=== PATIENT | female | born 1970 | race Caucasian/White ===

== ENCOUNTER 2018-05-23 00:42 | Inpatient (IN) ==
--- NOTE | 2018-05-23 01:19 | Emergency Department Note ---
Disposition Clinical Impression: Volume excess Disposition: Admitted As Inpatient Condition: Fair General Adult HPI - General Chief complaint: ED Shortness of Breath/Dyspnea Stated complaint: nellie water retention left ankle injury Time Seen by Provider: 05/23/18 01:11 - History of Present Illness Pain Scale: 0 - Related Data Allergies Allergy/AdvReac Type Severity Reaction Status Date / Time aspirin Allergy Difficulty Verified 05/23/18 01:09 Breathing Course Vital Signs Temperature 99.2 F 05/23/18 01:06 Pulse Rate 109 05/23/18 01:06 Respiratory Rate 22 05/23/18 01:06 Blood Pressure 128/65 05/23/18 01:06 O2 Sat by Pulse Oximetry 88 05/23/18 01:06 Temperature 99.2 F 05/23/18 01:57 Pulse Rate 109 05/23/18 01:57 Respiratory Rate 22 05/23/18 01:57 Blood Pressure 128/65 05/23/18 01:57 O2 Sat by Pulse Oximetry 88 05/23/18 01:57 Oxygen Delivery Oxygen Delivery Room Air Medical Decision Making - Lab Data Result diagrams: 05/23/18 02:01 05/23/18 02:01 Lab Results 05/23/18 05/23/18 05/23/18 Range/Units 01:31 02:01 02:01 WBC 10.8 (4.3-11.1) K/mcL RBC 4.61 (3.82-4.97) M/mcL Hgb 12.4 (11.5-15.4) g/dL Hct 41.8 (35.3-44.9) % MCV 90.7 (83.0-100.0) fL MCH 26.9 L (28.0-33.3) pg MCHC 29.7 L (31.6-35.5) g/dL RDW 17.0 H (11.5-14.5) % Plt Count 230 (140-400) K/mcL MPV 10.3 (9.4-12.4) fL Immature Gran % 0.7 (0-4) % Seg Neutrophils % 70.7 % Lymphocytes % 21.3 % Monocytes % 4.3 % Eosinophils % 2.4 % Basophils % 0.6 % Neutrophils # 7.6 (1.6-8.9) K/mcL Lymphocytes # 2.3 (0.6-4.6) K/mcL Monocytes # 0.5 (0.0-1.3) K/mcL Eosinophils # 0.3 (0.0-0.6) K/mcL Basophils # 0.1 (0.0-0.2) K/mcL Nucleated RBCs/100 WBC 0.2 H (0) /100 WBC PT 14.7 H (9.4-12.1) Seconds INR 1.3 ABG pH 7.40 (7.32-7.45) pH Units ABG pCO2 58 H (35-45) mmHg ABG pO2 48 L* (85-104) mmHg ABG HCO3 36 H (21-27) mEq/L ABG Total CO2 37 H (20-26) mEq/L ABG O2 Saturation 82 L (95-98) % ABG Base Excess 8 H (-2 to 3) mEq/L O2 Delivery Device Room Air Sodium (136-145) mEq/L Potassium (3.5-5.1) mEq/L Chloride (98-107) mEq/L Carbon Dioxide (23-29) mEq/L BUN (6-20) mg/dL Creatinine (0.60-1.20) mg/dL Est GFR ( Amer) (> 60) Est GFR (Non-Af Amer) (> 60) BUN/Creatinine Ratio (6-26) Glucose (70-105) mg/dL Calculated Osmolality (280-300) Calcium (8.6-10.3) mg/dL Total Bilirubin (0.3-1.0) mg/dL AST (13-39) Units/L ALT (7-52) Units/L Alkaline Phosphatase (34-104) Units/L Troponin I (< 0.04) ng/mL B-Natriuretic Peptide (Less than 100) pg/mL Serum Total Protein (6.4-8.9) g/dL Albumin (3.5-5.7) g/dL Globulin (2.4-3.5) g/dL Albumin/Globulin Ratio (1.1-2.2) Serum , Qual (Negative) 05/23/18 05/23/18 05/23/18 Range/Units 02:01 02:01 02:01 WBC (4.3-11.1) K/mcL RBC (3.82-4.97) M/mcL Hgb (11.5-15.4) g/dL Hct (35.3-44.9) % MCV (83.0-100.0) fL MCH (28.0-33.3) pg MCHC (31.6-35.5) g/dL RDW (11.5-14.5) % Plt Count (140-400) K/mcL MPV (9.4-12.4) fL Immature Gran % (0-4) % Seg Neutrophils % % Lymphocytes % % Monocytes % % Eosinophils % % Basophils % % Neutrophils # (1.6-8.9) K/mcL Lymphocytes # (0.6-4.6) K/mcL Monocytes # (0.0-1.3) K/mcL Eosinophils # (0.0-0.6) K/mcL Basophils # (0.0-0.2) K/mcL Nucleated RBCs/100 WBC (0) /100 WBC PT (9.4-12.1) Seconds INR ABG pH (7.32-7.45) pH Units ABG pCO2 (35-45) mmHg ABG pO2 (85-104) mmHg ABG HCO3 (21-27) mEq/L ABG Total CO2 (20-26) mEq/L ABG O2 Saturation (95-98) % ABG Base Excess (-2 to 3) mEq/L O2 Delivery Device Sodium 139 (136-145) mEq/L Potassium 3.8 (3.5-5.1) mEq/L Chloride 98 (98-107) mEq/L Carbon Dioxide 35 H (23-29) mEq/L BUN 9 (6-20) mg/dL Creatinine 0.75 (0.60-1.20) mg/dL Est GFR ( Amer) > 60 (> 60) Est GFR (Non-Af Amer) > 60 (> 60) BUN/Creatinine Ratio 12 (6-26) Glucose 191 H (70-105) mg/dL Calculated Osmolality 292 (280-300) Calcium 8.9 (8.6-10.3) mg/dL Total Bilirubin 0.8 (0.3-1.0) mg/dL AST 40 H (13-39) Units/L ALT 36 (7-52) Units/L Alkaline Phosphatase 88 (34-104) Units/L Troponin I < 0.03 (< 0.04) ng/mL B-Natriuretic Peptide 127 H (Less than 100) pg/mL Serum Total Protein 7.5 (6.4-8.9) g/dL Albumin 3.4 L (3.5-5.7) g/dL Globulin 4.1 H (2.4-3.5) g/dL Albumin/Globulin Ratio 0.8 L (1.1-2.2) Serum , Qual Negative (Negative) Attestation Statement - Attestation Attestation: The history, physical exam, and medical decision making was performed by the medical student either while I was physically present and actively involved or I personally re-performed the exam and medical decision making. I have verified the accuracy of the medical student's documentation with regards to the history, physical exam findings, and medical decision making. Face to face time provided Patient arrives complaining of increasing dyspnea, somnolence, water weight gain. She is morbidly obese but does not appear in any acute distress on exam. H/O obstructive sleep apnea but non compliant with CPAP. I provided an evaluation of this patient in conjunction with the medical student. 02:44: Given the patient's edema and chest x-ray findings I have recommended admission to the medicine service for diuresis and possible echocardiogram.
[2018-05-23 01:39] LABS: ABG Base Excess 8 mEq/L (-2 to 3); ABG HCO3 36 mEq/L (21-27); ABG Oxygen Saturation 82 % (95-98); ABG PCO2 58 mmHg (35-45); ABG PO2 48 mmHg (85-104); ABG TCO2 37 mEq/L (20-26)
--- NOTE | 2018-05-23 01:42 | Emergency Department Note ---
Disposition Clinical Impression: Volume excess Disposition: Admitted As Inpatient Condition: Fair General Adult HPI - General Chief complaint: ED Shortness of Breath/Dyspnea Stated complaint: nellie water retention left ankle injury Time Seen by Provider: 05/23/18 01:11 - History of Present Illness HPI Narrative: 47 yof presents to the ED for a 2 week history of increased generalized swelling and difficulty breathing. She states that she is perimenopausal and has missed her last period which was supposed to be on 05/08/2018. Normally she bloats during her periods and it resolves. This time she started bloating around the time she was supposed to have her menstrual period and progressively worsened. She is now having difficulty breathing secondary to abdominal distention. She states that this has never happened before. She has a history of agoraphobia and does not regularly follow up with her PCP. Patient states that she has been feeling more fatigued in the past few months. This is a chronic issue and she has been diagnosed with obstructive sleep apnea. She states that she is non-compliant with her cpap machine because it makes it difficult for her to sleep. She has been nodding off during the day. Patient is also complaining of left ankle pain. She was getting up from the bathtub this evening and sprained her left ankle, but is still able to bear weight on it. Patient denies chest pain, nausea, vomiting, fever. Onset (ago): week(s) Pain Scale: 0 - Related Data Allergies Allergy/AdvReac Type Severity Reaction Status Date / Time aspirin Allergy Difficulty Verified 05/23/18 01:09 Breathing Constitutional: Denies: fever, chills, weight change Eyes: Denies: vision change ENT ED: Denies: congestion Cardiovascular: Reports: edema. Denies: chest pain, palpitations Respiratory: Reports: dyspnea. Denies: cough, wheezes Gastrointestinal: Denies: abdominal pain, nausea, vomiting, diarrhea Genitourinary: Denies: urgency, dysuria Musculoskeletal: Reports: joint swelling (left ankle) Integumentary: Reports: other (striae ) Psychiatric: Reports: depression. Denies: suicidal thoughts Endocrine: Reports: fatigue Allergic/Immunologic: Reports: other (generalized swelling ) Physical Exam - General Limitations: physical limitation (secondary to morbid obesity ) General appearance: obese - Head Head exam: atraumatic, normocephalic, normal inspection - Eye Eye exam: Present: normal appearance - ENT ENT exam: normal exam, normal oropharynx, mucous membranes moist - Neck Neck exam: Present: normal inspection, full ROM. Absent: thyromegaly - Chest Chest inspection: Present: normal inspection, symmetric chest wall rise - Respiratory Respiratory exam: Present: normal lung sounds bilaterally - Cardiovascular Cardiovascular exam: Present: regular rate, normal rhythm, normal heart sounds - Abdominal Exam Abdominal exam: Present: distention, normal bowel sounds, other (morbidly obese with taut, distended abdomen. Multiple striae ) - Extremities Exam Extremities exam: Present: pedal edema - Expanded Lower Extremity Exam Ankle exam: Present: tenderness (left lateral malleolus ), swelling - Neurological Exam Neurological exam: Present: alert, oriented X3 - Psychiatric Psychiatric exam: Present: normal affect, normal mood - Skin Skin exam: Present: warm, dry Course Vital Signs Temperature 99.2 F 05/23/18 01:06 Pulse Rate 109 05/23/18 01:06 Respiratory Rate 22 05/23/18 01:06 Blood Pressure 128/65 05/23/18 01:06 O2 Sat by Pulse Oximetry 88 05/23/18 01:06 Temperature 99.2 F 05/23/18 01:57 Pulse Rate 109 05/23/18 01:57 Respiratory Rate 22 05/23/18 01:57 Blood Pressure 128/65 05/23/18 01:57 O2 Sat by Pulse Oximetry 88 05/23/18 01:57 Oxygen Delivery Oxygen Delivery Room Air Medical Decision Making - [facility] Narrative Medical decision making narrative: Morbidly obese female patient presenting with generalized swelling and secondary shortness of breath. This is likely due to abdominal distension preventing proper diaphragm movement. On physical exam patient appears volume overloaded. Chest xray shows cardiomegaly with venous congestion. Her BNP is 127 but that appears to be falsely depressed secondary to morbid obesity. We will admit patient for workup of possible CHF. - Medical Records Medical records reviewed: Yes I reviewed the patient's medical records. - Lab Data Lab results reviewed: Yes I reviewed the patient's lab results. Result diagrams: 05/23/18 02:01 05/23/18 02:01 Lab Results 05/23/18 05/23/18 05/23/18 Range/Units 01:31 02:01 02:01 WBC 10.8 (4.3-11.1) K/mcL RBC 4.61 (3.82-4.97) M/mcL Hgb 12.4 (11.5-15.4) g/dL Hct 41.8 (35.3-44.9) % MCV 90.7 (83.0-100.0) fL MCH 26.9 L (28.0-33.3) pg MCHC 29.7 L (31.6-35.5) g/dL RDW 17.0 H (11.5-14.5) % Plt Count 230 (140-400) K/mcL MPV 10.3 (9.4-12.4) fL Immature Gran % 0.7 (0-4) % Seg Neutrophils % 70.7 % Lymphocytes % 21.3 % Monocytes % 4.3 % Eosinophils % 2.4 % Basophils % 0.6 % Neutrophils # 7.6 (1.6-8.9) K/mcL Lymphocytes # 2.3 (0.6-4.6) K/mcL Monocytes # 0.5 (0.0-1.3) K/mcL Eosinophils # 0.3 (0.0-0.6) K/mcL Basophils # 0.1 (0.0-0.2) K/mcL Nucleated RBCs/100 WBC 0.2 H (0) /100 WBC PT 14.7 H (9.4-12.1) Seconds INR 1.3 ABG pH 7.40 (7.32-7.45) pH Units ABG pCO2 58 H (35-45) mmHg ABG pO2 48 L* (85-104) mmHg ABG HCO3 36 H (21-27) mEq/L ABG Total CO2 37 H (20-26) mEq/L ABG O2 Saturation 82 L (95-98) % ABG Base Excess 8 H (-2 to 3) mEq/L O2 Delivery Device Room Air Sodium (136-145) mEq/L Potassium (3.5-5.1) mEq/L Chloride (98-107) mEq/L Carbon Dioxide (23-29) mEq/L BUN (6-20) mg/dL Creatinine (0.60-1.20) mg/dL Est GFR ( Amer) (> 60) Est GFR (Non-Af Amer) (> 60) BUN/Creatinine Ratio (6-26) Glucose (70-105) mg/dL Calculated Osmolality (280-300) Calcium (8.6-10.3) mg/dL Total Bilirubin (0.3-1.0) mg/dL AST (13-39) Units/L ALT (7-52) Units/L Alkaline Phosphatase (34-104) Units/L Troponin I (< 0.04) ng/mL B-Natriuretic Peptide (Less than 100) pg/mL Serum Total Protein (6.4-8.9) g/dL Albumin (3.5-5.7) g/dL Globulin (2.4-3.5) g/dL Albumin/Globulin Ratio (1.1-2.2) Serum , Qual (Negative) 05/23/18 05/23/18 05/23/18 Range/Units 02:01 02:01 02:01 WBC (4.3-11.1) K/mcL RBC (3.82-4.97) M/mcL Hgb (11.5-15.4) g/dL Hct (35.3-44.9) % MCV (83.0-100.0) fL MCH (28.0-33.3) pg MCHC (31.6-35.5) g/dL RDW (11.5-14.5) % Plt Count (140-400) K/mcL MPV (9.4-12.4) fL Immature Gran % (0-4) % Seg Neutrophils % % Lymphocytes % % Monocytes % % Eosinophils % % Basophils % % Neutrophils # (1.6-8.9) K/mcL Lymphocytes # (0.6-4.6) K/mcL Monocytes # (0.0-1.3) K/mcL Eosinophils # (0.0-0.6) K/mcL Basophils # (0.0-0.2) K/mcL Nucleated RBCs/100 WBC (0) /100 WBC PT (9.4-12.1) Seconds INR ABG pH (7.32-7.45) pH Units ABG pCO2 (35-45) mmHg ABG pO2 (85-104) mmHg ABG HCO3 (21-27) mEq/L ABG Total CO2 (20-26) mEq/L ABG O2 Saturation (95-98) % ABG Base Excess (-2 to 3) mEq/L O2 Delivery Device Sodium 139 (136-145) mEq/L Potassium 3.8 (3.5-5.1) mEq/L Chloride 98 (98-107) mEq/L Carbon Dioxide 35 H (23-29) mEq/L BUN 9 (6-20) mg/dL Creatinine 0.75 (0.60-1.20) mg/dL Est GFR ( Amer) > 60 (> 60) Est GFR (Non-Af Amer) > 60 (> 60) BUN/Creatinine Ratio 12 (6-26) Glucose 191 H (70-105) mg/dL Calculated Osmolality 292 (280-300) Calcium 8.9 (8.6-10.3) mg/dL Total Bilirubin 0.8 (0.3-1.0) mg/dL AST 40 H (13-39) Units/L ALT 36 (7-52) Units/L Alkaline Phosphatase 88 (34-104) Units/L Troponin I < 0.03 (< 0.04) ng/mL B-Natriuretic Peptide 127 H (Less than 100) pg/mL Serum Total Protein 7.5 (6.4-8.9) g/dL Albumin 3.4 L (3.5-5.7) g/dL Globulin 4.1 H (2.4-3.5) g/dL Albumin/Globulin Ratio 0.8 L (1.1-2.2) Serum , Qual Negative (Negative) - EKG Data EKG #1 EKG results narrative: Sinus tachycardia with rate of 102 bpm
[2018-05-23 02:16] LABS: Basophils # 0.1 K/mcL (0.0-0.2); Basophils % 0.6 %; Eosinophils # 0.3 K/mcL (0.0-0.6); Eosinophils % 2.4 %; Hematocrit 41.8 % (35.3-44.9); Hemoglobin 12.4 g/dL (11.5-15.4); Immature Granulocytes % 0.7 % (0-4); Lymphocytes # 2.3 K/mcL (0.6-4.6); Lymphocytes % 21.3 %; Mean Corpuscular HGB Conc 29.7 g/dL (31.6-35.5); Mean Corpuscular Hemoglobin 26.9 pg (28.0-33.3); Mean Corpuscular Volume 90.7 fL (83.0-100.0); Mean Platelet Volume 10.3 fL (9.4-12.4); Monocytes # 0.5 K/mcL (0.0-1.3); Monocytes % 4.3 %; Neutrophils # 7.6 K/mcL (1.6-8.9); Nucleated Red Blood Cells 0.2 /100 WBC (0); Platelet Count 230 K/mcL (140-400); Red Blood Count 4.61 M/mcL (3.82-4.97); Segmented Neutrophils % 70.7 %
[2018-05-23 02:22] LABS: INR 1.3; Prothrombin Time 14.7 Seconds (9.4-12.1)
[2018-05-23 02:35] LABS: Alanine Aminotransferase 36 Units/L (7-52); Albumin 3.4 g/dL (3.5-5.7); Albumin/Globulin Ratio 0.8 (1.1-2.2); Alkaline Phosphatase 88 Units/L (34-104); Aspartate Amino Transferase 40 Units/L (13-39); BUN/Creatinine Ratio 12 (6-26); Bilirubin,Total 0.8 mg/dL (0.3-1.0); Blood Urea Nitrogen 9 mg/dL (6-20); Calcium 8.9 mg/dL (8.6-10.3); Carbon Dioxide 35 mEq/L (23-29); Chloride 98 mEq/L (98-107); Globulin 4.1 g/dL (2.4-3.5); Glucose 191 mg/dL (70-105); Osmolality,Calculated 292 (280-300); Potassium 3.8 mEq/L (3.5-5.1); Sodium 139 mEq/L (136-145); Total Protein 7.5 g/dL (6.4-8.9); Troponin I < 0.03 ng/mL (< 0.04); eGFR For Non-African Americans > 60 (> 60)
[2018-05-23] MEDS ORDERED: Furosemide 40 MG/4 ML VIAL IVP ONE (02:43)
[2018-05-23] MEDS ORDERED: *HR* HYDROcodone/Acet 5/325 mg TABLET PO PRN (05:58)
[2018-05-23] MEDS ORDERED: Acetaminophen 325 MG TABLET PO PRN (05:58)
[2018-05-23] MEDS ORDERED: Naloxone 0.4 MG/ML INJ IVP PRN (05:58)
--- NOTE | 2018-05-23 06:04 | Internal Med History&Physical ---
Date of Encounter: 05/23/18 Time of Encounter: 06:03 Internal Medicine - H&P: HPI Chief complaint: Fluid Overload Admitted From: Emergency Dept History of present illness: Ms. Looney is a 47 year old female with significant past medical history of hypothyroidism, agoraphobia, bipolar disorder not on any current medications due to her running out and being too anxious about leaving the home admitted from the emergency department for fluid overload. Patient states she has been holding onto fluid for the past 2 weeks. Has gotten so severe that she feels like her skin is going to crack and pop. Patient states she normally has mild retention of fluid around the time she gets her menstrual cycle. This was supposed be 2 weeks ago. Her menstrual cycle has been irregular as she is going through menopause at this time. She states approximately 2 weeks ago she was scheduled to have her menstrual cycle but she did not get it. She started to retain fluid and then continue to retain it. She states this has happened a few times previously but has never needed admission or workup for it. She denies any history of congestive heart failure. Is not on any diuretics at home. She denies any recent nausea, vomiting, diarrhea. She does states she has had urinary frequency and is concerned she has a urinary tract infection but denies any fevers, chest pain. She does state that she has some increased shortness of breath especially on exertion. Laboratory analysis in the ER showed mildly elevated BNP and a chest x-ray showed pulmonary edema. Patient was given 40 mg of Lasix in the emergency department. Past Med Surg Social Fam HX - Past Medical History Attestation: Yes The following information was validated with the patient. Medical history: non-contributory - Social History Smoking Status: Unknown if ever smoked Smokeless Tobacco Status: No Alcohol use: none Drug use: none Internal Medicine - H&P: Meds Allergy/AdvReac Type Severity Reaction Status Date / Time aspirin Allergy Difficulty Verified 05/23/18 01:09 Breathing All Systems PM: A 10-system review of systems was performed and is negative for pertinent findings except as documented above in the HPI. - Constitutional Constitutional: weight gain, no fever(s), no falls - EENT Eyes: as per HPI Ears: as per HPI Nose, mouth and throat: as per HPI - Breasts Breasts: as per HPI - Cardiovascular Cardiovascular ROS IM: dyspnea, dyspnea on exertion, no chest pain, no li ghtheadedness - Respiratory Respiratory: dyspnea on exertion, no cough, no wheezing - Gastrointestinal Gastrointestinal: no diarrhea, no nausea, no vomiting - Genitourinary Genitourinary: abnormal menses Menstruation: as per HPI - Musculoskeletal Musculoskeletal ROS IM: as per HPI - Integumentary Integumentary IM: as per HPI - Neurological Neurological ROS: as per HPI - Psychiatric Psychiatric: as per HPI - Endocrine Endocrine IM: as per HPI - Hematologic/Lymphatic Hematologic/Lymphatic: as per HPI - Allergic/Immunologic Allergic/Immunologic: as per HPI - Constitutional Vitals: Temp Pulse Resp BP Pulse Ox 99.2 F 109 22 128/65 88 05/23/18 01:57 05/23/18 01:57 05/23/18 01:57 05/23/18 01:57 05/23/18 01:57 General appearance: Present: A&O X 3, morbidly obese Exam: Pleasant, 47-year-old female in no acute distress. - Head Head exam: Present: atraumatic, normal inspection, normocephalic - Eye Eye exam: Absent: scleral icterus - ENT ENT exam: Present: mucous membranes dry - Neck Neck exam general surgery: Present: full ROM - Respiratory Additional comments: Coarse breath sounds in the bilateral bases - Cardiovascular Cardiovascular exam: Present: RRR. Absent: diastolic murmur, systolic murmur - GI/Abdominal GI/Abdominal exam: Present: firm. Absent: guarding, rebound - Extremities Exam Additional comments: 3+ pitting edema bilateral lower extremities - Neurological Exam Neurological exam: Present: alert, oriented X3, no focal deficits - Skin Skin exam: Present: warm. Absent: rash Internal Med - H&P Results - Labs CBC & Chem 7: 05/23/18 02:01 05/23/18 02:01 Labs: Short CBC 05/23/18 Range/Units 02:01 WBC 10.8 (4.3-11.1) K/mcL Hgb 12.4 (11.5-15.4) g/dL Hct 41.8 (35.3-44.9) % Plt Count 230 (140-400) K/mcL Neutrophils # 7.6 (1.6-8.9) K/mcL BMP 05/23/18 02:01 Sodium 139 Potassium 3.8 Chloride 98 Carbon Dioxide 35 H BUN 9 Creatinine 0.75 Glucose 191 H Calcium 8.9 Cardiac Enzymes 05/23/18 Range/Units 02:01 Troponin I < 0.03 (< 0.04) ng/mL Liver Function 05/23/18 Range/Units 02:01 Total Bilirubin 0.8 (0.3-1.0) mg/dL AST 40 H (13-39) Units/L ALT 36 (7-52) Units/L Alkaline Phosphatase 88 (34-104) Units/L Albumin 3.4 L (3.5-5.7) g/dL - ABG Interpretation ABG results: 05/23/18 01:31 ABG pH 7.40 ABG pCO2 58 H ABG pO2 48 L* ABG HCO3 36 H ABG Total CO2 37 H ABG O2 Saturation 82 L ABG Base Excess 8 H - Impressions ITS Impressions Chest X-Ray 05/23/18 01:12 IMPRESSION: Cardiomegaly and pulmonary vascular congestion. No focal airspace consolidation. D/ / Varinder Faye MD / Varinder Faye MD Interpreting Provider: Varinder Faye MD Ankle X-Ray 05/23/18 01:14 IMPRESSION: Soft tissue swelling over lateral ankle malleolus may represent ligamentous injury no fracture. D/ / Nicanor Navarrete MD / Nicanor Navarrete MD Interpreting Provider: Nicanor Navarrete MD - Assessment and plan (1) Volume excess Current Visit: Yes Status: Acute Assessment and plan: Patient fluid overloaded on exam. Pulmonary edema on x-ray. We will provide patient with 40 mg Lasix twice a day. Fluid restriction diet to 2 L and echo. Qualifiers: Hypervolemia type: unspecified Qualified Code(s): E87.70 - Fluid overload, unspecified (2) Urinary frequency Current Visit: Yes Status: Acute Assessment and plan: Patient states she has had urinary frequency. UTI versus fluid overload. Urinalysis pending. (3) Hypothyroidism Current Visit: Yes Status: Acute Assessment and plan: Patient with known history of hypothyroidism but has not been taking her Synthroid. Will obtain TSH and free T4. Qualifiers: Hypothyroidism type: unspecified Qualified Code(s): E03.9 - Hypothyroidism, unspecified (4) Agoraphobia Current Visit: Yes Status: Acute Assessment and plan: Patient with known history of agoraphobia. Consider psychiatric consultation if necessary during admission. (5) DVT prophylaxis Current Visit: Yes Status: Acute Assessment and plan: Subcutaneous heparin - Time Spent With Patient Total time spent is greater than 50% in coordination of care (as documented) at patient's floor/unit and/or counseling patient:
[2018-05-23 06:21] LABS: Thyroid Stimulating Hormone 9.981 mcIU/mL (0.340-5.600)
[2018-05-23] MEDS ORDERED: D5% in Water 1,000 ML IVC PRN (07:43)
[2018-05-23] MEDS ORDERED: Dextrose Gel 15 GM/37.5 ML TUBE PO PRN ×2 (07:43)
[2018-05-23] MEDS ORDERED: *HR* Dextrose 50 % in Water (Syg) 50 ML SYRINGE IVP PRN (07:43)
[2018-05-23 08:20] LABS: Estimated Average Glucose 151 mg/dl; Hemoglobin A1C 6.9 %
[2018-05-23] MEDS: Furosemide 40 MG/4 ML VIAL IVP SCH ×2 (10:32→18:39)
[2018-05-23] MEDS ORDERED: Perflutren Lipid Microsphere 1.3 ML in 0.9 % Sodium Chloride 8.7 ML IVP ONE (12:11)
[2018-05-23] MEDS: Insulin LISPRO 300 UNITS/3 ML VIAL SQ SCH ×2 (12:59→18:43)
[2018-05-23] MEDS ORDERED: *HR* Heparin 5,000 UNIT/ML VIAL SQ SCH (14:00)
--- NOTE | 2018-05-23 16:26 | Event Note ---
Date of Encounter: 05/23/18 Time of Encounter: 15:56 Patient was examined review the lab. Patient is lying comfortably bariatric bed. at bedside. Echocardiogram revealed with preserved LV function but mild LV DD. Continue a strict I&O's, daily weight, IV diuresis. Bobby catheter if needed. In ER Patient had SPO2 82% on room air with ABG PO2 48 and PCO2 58. Patient had hypoxia at presentation therefore d-dimer ordered. Will consider CT chest to rule out PE if any concern. Chest x-ray with cardiomegaly and vascular congestion. No previous cardiac history and no cardiac workup in the past. Will consult cardiology as well. Impressions: Technically sub-optimal due to body habitus. Definity echo contrast was used. LVEF 60%. Mild left ventricular diastolic dysfunction. RV size and function not well evaluated. Valves not well visualized. No significant dysfunction by Doppler. Unable to estimate RVSP due to lack of TR signal.
--- NOTE | 2018-05-23 17:40 | Electrocardiograph Report ---
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
[2018-05-23 19:11] LABS: Bilirubin,Urine Small (Negative); Blood,Urine Negative (Negative); Clarity,Urine Cloudy (Clear); Color,Urine Dark Yellow (Yellow); Glucose,Urine (UA) Normal (Normal); Ketones,Urine Negative (Negative); Leukocyte Esterase,Urine Moderate (Negative); Nitrite,Urine Negative (Negative); PH,Urine 5.5 pH Units (5.0-8.0); Protein,Urine 30 mg/dL (Neg-Trace); Specific Gravity,Urine 1.024 (1.010-1.025); Urobilinogen,Urine Normal (Normal)
[2018-05-23 19:13] LABS: Bacteria,Urine Moderate per hpf (None-Few); Hyaline Casts,Urine Few per lpf (None-Few); RBC,Urine 0-3 per hpf (0-3); Squamous Epithelial Cell,Urine Many per lpf (None-Few); WBC,Urine TNTC per hpf (0-3)
--- NOTE | 2018-05-23 21:10 | Event Note ---
Date of Encounter: 05/23/18 Time of Encounter: 20:00 Followed up on D-dimer obtained from day shift that is elevated. Contacted CT who states patient weight is too high for CT scanner as cutoff is 220kg. Low suspicion for PE but due to elevated D-dimer and being unable to rule out with CT, will start heparin drip prophylactically. Discussed with patient. Patient aware of risks, denies any history of bleeding complications, and agrees to proceed. Discussed with Dr Pulliam and Dr Salvador.
[2018-05-23] MEDS ORDERED: *HR* Heparin 5,000 UNIT/ML VIAL IVP PRN ×2 (21:11)
[2018-05-23 21:32] LABS: Hematocrit 42.1 % (35.3-44.9); Hemoglobin 12.4 g/dL (11.5-15.4); Mean Corpuscular HGB Conc 29.5 g/dL (31.6-35.5); Mean Corpuscular Hemoglobin 26.9 pg (28.0-33.3); Mean Corpuscular Volume 91.3 fL (83.0-100.0); Mean Platelet Volume 10.2 fL (9.4-12.4); Platelet Count 201 K/mcL (140-400); Red Blood Count 4.61 M/mcL (3.82-4.97); Red Cell Distribution Width 16.7 % (11.5-14.5)
[2018-05-23 21:41] LABS: INR 1.2
[2018-05-23] MEDS: Heparin 25,000 UNIT/500 ML D5W 25,000 UNIT/500 ML BAG IVC SCH (23:06)
[2018-05-24 05:49] LABS: Bilirubin,Urine Small (Negative); Blood,Urine Large (Negative); Clarity,Urine Cloudy (Clear); Color,Urine Orange (Yellow); Glucose,Urine (UA) Normal (Normal); Ketones,Urine Trace mg/dL (Negative); Leukocyte Esterase,Urine Moderate (Negative); Nitrite,Urine Positive (Negative); PH,Urine 6.5 pH Units (5.0-8.0); Protein,Urine 30 mg/dL (Neg-Trace); Specific Gravity,Urine 1.019 (1.010-1.025); Urobilinogen,Urine Normal (Normal)
[2018-05-24 05:51] LABS: Bacteria,Urine Many per hpf (None-Few); Hyaline Casts,Urine None Seen per lpf (None-Few); Squamous Epithelial Cell,Urine Few per lpf (None-Few); WBC,Urine 50-100 per hpf (0-3)
--- NOTE | 2018-05-24 06:25 | Event Note ---
Date of Encounter: 05/24/18 Time of Encounter: 06:00 Notified by nurse of repeat UA resulting, results show positive nitrites and moderate leukocyte esterase with patient having urinary symptoms. Urine and blood cultures ordered prior to antibiotics, Ceftriaxone ordered daily.
[2018-05-24 06:38] LABS: Basophils # 0.1 K/mcL (0.0-0.2); Basophils % 0.5 %; Eosinophils # 0.4 K/mcL (0.0-0.6); Eosinophils % 3.8 %; Hematocrit 40.3 % (35.3-44.9); Immature Granulocytes % 0.7 % (0-4); Lymphocytes # 2.5 K/mcL (0.6-4.6); Lymphocytes % 25.5 %; Mean Corpuscular HGB Conc 29.8 g/dL (31.6-35.5); Mean Corpuscular Hemoglobin 26.6 pg (28.0-33.3); Mean Corpuscular Volume 89.4 fL (83.0-100.0); Mean Platelet Volume 10.2 fL (9.4-12.4); Monocytes # 0.5 K/mcL (0.0-1.3); Monocytes % 5.5 %; Neutrophils # 6.3 K/mcL (1.6-8.9); Platelet Count 203 K/mcL (140-400); Red Blood Count 4.51 M/mcL (3.82-4.97); Red Cell Distribution Width 16.8 % (11.5-14.5)
[2018-05-24 06:56] LABS: BUN/Creatinine Ratio 15 (6-26); Blood Urea Nitrogen 10 mg/dL (6-20); Calcium 8.7 mg/dL (8.6-10.3); Carbon Dioxide 39 mEq/L (23-29); Chloride 96 mEq/L (98-107); Glucose 157 mg/dL (70-105); Osmolality,Calculated 292 (280-300); Potassium 3.4 mEq/L (3.5-5.1); Sodium 140 mEq/L (136-145); eGFR For Non-African Americans > 60 (> 60)
[2018-05-24 08:00] LABS: ABG Base Excess 12 mEq/L (-2 to 3); ABG HCO3 44 mEq/L (21-27); ABG Oxygen Saturation 97 % (95-98); ABG PCO2 101 mmHg (35-45); ABG PH 7.25 pH Units (7.32-7.45); ABG PO2 111 mmHg (85-104); ABG TCO2 47 mEq/L (20-26); Blood Gas PEEP 6 cm H2O; Blood Gas Pressure Support 12 cm H2O
[2018-05-24] MEDS: Heparin 25,000 UNIT/500 ML D5W 25,000 UNIT/500 ML BAG IVC SCH ×3 (08:12→16:38)
[2018-05-24] MEDS: Insulin LISPRO 300 UNITS/3 ML VIAL SQ SCH ×3 (08:39→17:51)
[2018-05-24] MEDS: Levothyroxine 25 MCG TABLET PO SCH (08:47)
[2018-05-24] MEDS: Furosemide 40 MG/4 ML VIAL IVP SCH ×2 (08:48→16:37)
[2018-05-24] MEDS: cefTRIAXone 1,000 MG in Water for inj. (sterile) 20 ML 10 ML IVP SCH (08:48)
--- NOTE | 2018-05-24 10:17 | Pulmonology Consult Note ---
<Jorgito Salcedo - Last Filed: 05/24/18 12:12> Date of Encounter: 05/24/18 Time of Encounter: 10:17 Assessment and Plan (1) Acute respiratory failure with hypoxia and hypercapnia Current Visit: Yes Status: Acute Morbidly obese patient presented with lower extremity edema and SOB gradually worsening over 2 weeks. Patient was found to be hypoxic with ABG SpO2 82% on room air and tachycardic HR > 100. Repeat this morning ABG revealed pH 7.25, pCO2 101, pO2 111, HCO3 44, and SpO2 97% on Bipap. Repeat ABG this afternoon revealed pH 7.32, pCO2 85, pO2 123, HCO3 44, and SpO2 98% on Bipap. NPO diet. Stress importance of Bipap compliance. Patient will eventually need a Bipap qualification study. Well's score for PE = 6 (significant immobilization, clinical signs of DVT, HR > 100) She denies history of DVT/PE, hemoptysis, or cancer. Her D-dimer was elevated 799 and patient was started on Heparin drip for possible PE/DVT. Patient is unable to get a CT chest or V/Q scan due to her body habitus. Will obtain stat Doppler of bilateral lower extremities. If Doppler study positive, recommend treatment. If Doppler study negative, recommend transfer to a facility that has a CT scanner which can accommodate her body habitus. RN notified to obtain accurate weight and abdominal circumference measurement for possible need to transfer. (2) UTI (urinary tract infection) Current Visit: Yes Status: Acute Patient was started on Rocephin. Management per primary team. Qualifiers: Urinary tract infection type: site unspecified Hematuria presence: without hematuria Qualified Code(s): N39.0 - Urinary tract infection, site not specified (3) Hypothyroidism Current Visit: Yes Status: Chronic Patient reports stopping her Synthroid on her own. TSH level 9.981 Free T4 1.17 Resume Synthroid Management per primary team. Qualifiers: Hypothyroidism type: unspecified Qualified Code(s): E03.9 - Hypothyroidism, unspecified (4) CHERRY (obstructive sleep apnea) Current Visit: Yes Status: Chronic Patient with CPAP use for severe CHERRY. She had a home sleep study performed one year ago and purchased a CPAP machine online. The patient manages her own CPAP settings. Recommend outpatient Pulmonology followup to adjust and monitor her CPAP settings. (5) Morbid obesity with BMI of 70 and over, adult Current Visit: Yes Status: Chronic BMI 99.3, RN notified to obtain accurate weight and abdominal circumference measurement Diet modification and exercise (6) Depression Current Visit: Yes Status: Chronic Management per primary team. Consider inpatient psych consult if patient will not be transferred. Qualifiers: Depression Type: unspecified Qualified Code(s): F32.9 - Major depressive disorder, single episode, unspecified (7) DVT prophylaxis Current Visit: Yes Status: Acute Heparin drip History of Present Illness Consult date: 05/24/18 Requesting physician: Yanely Clarke Reason for consult: dyspnea Chief complaint: Hypoxia History of present illness: Mrs. Looney is a pleasant 47 year old female with a past medical history of CPAP use for severe CHERRY, hypothyroidism, depression, and morbid obesity who presented from home with her due to lower extremity edema and SOB gradually worsening over 2 weeks. In the ED, patient was found to be hypoxic with ABG SpO2 82% on room air and tachycardic HR > 100. Patient reports significant immobilization due to agoraphobia and does not leave her room. She occasionally leaves her bed to go to the bathroom and her brings her food to her room. Patient reports stopping her Synthroid, Trazodone, and Venlafaxine on her own. She had a home sleep study performed one year ago and purchased a CPAP machine online. The patient manages her own CPAP settings and gets her medications refilled by her nurse practitioner. She denies fever, chills, chest pain, history of DVT/PE, hemoptysis, or cancer. She smoked for 20 years in the past. is at bedside. Patient reports they have dogs at home but patient denies history of asthma. ABG revealed pH 7.25, pCO2 101, pO2 111, HCO3 44, and SpO2 97% on Bipap. Her D- dimer was elevated 799 and patient was started on Heparin drip for possible PE/DVT. Patient is unable to get a CT chest or V/Q scan due to her body habitus. Pulmonology was consulted for further recommendations. Past Med Surg Social Fam HX - Past Medical History Medical history: non-contributory Psychiatric history: depression - Social History Smoking Status: Former smoker Smokeless Tobacco Status: No Alcohol use: none Drug use: none - Family History Mother Living Status: Still Living Hx Family Cardiac Disorders: Yes (HTN) Hx Family GI Disorders: Yes Father Hx Family Cancer: Yes (Bladder, lung, brain) Medications and Allergies Levothyroxine [Synthroid] 25 mcg PO 0630 05/23/18 [History] Trazodone HCl 150 mg PO DAILY 05/23/18 [History] Venlafaxine HCl [Venlafaxine HCl ER] 150 mg PO DAILY 05/23/18 [History] Allergy/AdvReac Type Severity Reaction Status Date / Time aspirin Allergy Difficulty Verified 05/23/18 01:09 Breathing All Systems: The remainder of the systems were reviewed and are negative - Constitutional Constitutional: daytime sleepiness, fatigue, lethargy, snoring, witnessed apnea, weight gain, no chills, no fever(s), no weakness - EENT Nose, mouth and throat: no nasal congestion, no sore throat - Cardiovascular Cardiovascular: palpitations, no chest pain - Gastrointestinal Gastrointestinal: no heartburn, no nausea, no vomiting - Genitourinary Genitourinary: urinary frequency, no dysuria, no genital lesions - Musculoskeletal Musculoskeletal: no weakness - Neurological Neurological: no abnormal gait, no confusion, no weakness - Psychiatric Psychiatric: anxiety, depression - Endocrine Endocrine: fatigue Physical Examination Vital Signs: Vital Signs, Last 4 Hours Temp Pulse Resp BP Pulse Ox 05/24/18 07:55 13 135/74 97 05/24/18 07:24 97.6 F 92 15 135/74 100 General appearance: no acute distress (morbidly obese) Eyes: nonicteric ENT: oropharynx moist Neck: supple Effort: normal Inspection: normal Auscultation: bilateral: clear, diminished breath sounds Percussion: bilateral: not dull Cardiovascular: regular rate and rhythm Gastrointestinal: normoactive bowel sounds, non-distended Integumentary: normal Extremities: no cyanosis, no clubbing, edema (1+, negative Dori's sign bilaterally) Musculoskeletal: no deformities, ROM normal normal mental status, non-focal exam mood appropriate, affect normal Results - Laboratory Findings CBC and BMP: 05/24/18 05:54 05/24/18 05:54 ABG ABG pH 7.25 pH Units (7.32-7.45) L 05/24/18 07:56 ABG pCO2 101 mmHg (35-45) H* 05/24/18 07:56 ABG pO2 111 mmHg (85-104) H 05/24/18 07:56 ABG O2 Saturation 97 % (95-98) 05/24/18 07:56 PT/INR, D-dimer PT 14.0 Seconds (9.4-12.1) H 05/23/18 21:20 D-Dimer 799 ng/mLFEU (0-500) H 05/23/18 16:24 Abnormal lab findings: Abnormal lab results MCH 26.6 pg (28.0-33.3) L 05/24/18 05:54 MCHC 29.8 g/dL (31.6-35.5) L 05/24/18 05:54 RDW 16.8 % (11.5-14.5) H 05/24/18 05:54 Nucleated RBCs/100 WBC 0.2 /100 WBC (0) H 05/23/18 02:01 PT 14.0 Seconds (9.4-12.1) H 05/23/18 21:20 D-Dimer 799 ng/mLFEU (0-500) H 05/23/18 16:24 Heparin Anti-Xa, Unfract 0.71 IU/mL (0.30-0.70) H 05/24/18 05:54 ABG pH 7.25 pH Units (7.32-7.45) L 05/24/18 07:56 ABG pCO2 101 mmHg (35-45) H* 05/24/18 07:56 ABG pO2 111 mmHg (85-104) H 05/24/18 07:56 ABG HCO3 44 mEq/L (21-27) H 05/24/18 07:56 ABG Total CO2 47 mEq/L (20-26) H 05/24/18 07:56 ABG Base Excess 12 mEq/L (-2 to 3) H 05/24/18 07:56 Potassium 3.4 mEq/L (3.5-5.1) L 05/24/18 05:54 Chloride 96 mEq/L (98-107) L 05/24/18 05:54 Carbon Dioxide 39 mEq/L (23-29) H 05/24/18 05:54 Glucose 157 mg/dL (70-105) H 05/24/18 05:54 POC Glucose 129 mg/dL (70-99) H 05/23/18 11:09 Hemoglobin A1c 6.9 % (-5.6) H 05/23/18 02:01 AST 40 Units/L (13-39) H 05/23/18 02:01 B-Natriuretic Peptide 127 pg/mL (Less than 100) H 05/23/18 02:01 Albumin 3.4 g/dL (3.5-5.7) L 05/23/18 02:01 Globulin 4.1 g/dL (2.4-3.5) H 05/23/18 02:01 Albumin/Globulin Ratio 0.8 (1.1-2.2) L 05/23/18 02:01 TSH 9.981 mcIU/mL (0.340-5.600) H 05/23/18 02:01 Urine Color [place] (Yellow) A 05/24/18 03:30 Urine Clarity Cloudy (Clear) A 05/24/18 03:30 Urine Protein 30 mg/dL (Neg-Trace) H 05/24/18 03:30 Urine Ketones Trace mg/dL (Negative) H 05/24/18 03:30 Urine Blood Large (Negative) H 05/24/18 03:30 Urine Nitrite Positive (Negative) A 05/24/18 03:30 Urine Bilirubin Small (Negative) H 05/24/18 03:30 Ur Leukocyte Esterase Moderate (Negative) H 05/24/18 03:30 Urine Microscopic RBC 5-15 per hpf (0-3) H 05/24/18 03:30 Urine Microscopic WBC 50-100 per hpf (0-3) H 05/24/18 03:30 Urine Bacteria Many per hpf (None-Few) H 05/24/18 03:30 - Microbiology Findings Microbiology Findings: Microbiology, Last 48 Hours 05/24/18 06:45 Blood Culture - Preliminary Peripheral Venipuncture Culture is incubating and being continuously monitored for growth. Final report to follow. 05/24/18 06:40 Blood Culture - Preliminary Peripheral Venipuncture Culture is incubating and being continuously elizabeth tored for growth. Final report to follow. - Diagnostic Findings Chest x-ray: report reviewed, image reviewed Additional studies: ITS Impressions Chest X-Ray 05/23/18 01:12 IMPRESSION: Cardiomegaly and pulmonary vascular congestion. No focal airspace consolidation. D/ / Varinder Faye MD / Varinder Faye MD Interpreting Provider: Varinder Faye MD Ankle X-Ray 05/23/18 01:14 IMPRESSION: Soft tissue swelling over lateral ankle malleolus may represent ligamentous injury no fracture. D/ / Nicanor Navarrete MD / Nicanor Navarrete MD Interpreting Provider: Nicanor Navarrete MD Echocardiogram 05/23/18 05:59 Impressions: Technically sub-optimal due to body habitus. Definity echo contrast was used. LVEF 60%. Mild left ventricular diastolic dysfunction. RV size and function not well evaluated. Valves not well visualized. No significant dysfunction by Doppler. Unable to estimate RVSP due to lack of TR signal. Left Ventricular Wall Motion: Rest Echo Findings The mid anterior septal and mid inferior lateral moyer were not visualized. All other wall segments showed normal motion. Findings: Study Quality * Technically sub-optimal due to body habitus. ECG Findings * Normal sinus rhythm. Left Ventricle * LVEF 60%. * Mild left ventricular diastolic dysfunction. * LV wall thickness measurements not well obtained. * Definity echo contrast was used. Right Ventricle * RV size and function not well evaluated. Left Atrium * Left atrium is not well visualized. Right Atrium * Right atrium is not well visualized. Aortic Valve * No aortic regurgitation. * Aortic valve not well visualized. * No aortic stenosis. Mitral Valve * No mitral regurgitation. * Mitral valve not well visualized. * No mitral stenosis. Tricuspid Valve * Tricuspid valve not well visualized. * No tricuspid regurgitation. Pulmonic Valve * Pulmonic valve is not well visualized. * No pulmonic stenosis. * No pulmonic regurgitation. Pulmonary Artery * Pulmonary artery not well visualized. Aorta * Not well visualized. Pericardium * There is no pericardial effusion present. Interatrial Septum * Interatrial septum not well evaluated. IVC * The IVC is not well evaluated. - Clinical Findings Intake & Output: Intake & Output 05/23/18 05/24/18 05/24/18 23:59 07:59 15:59 Intake Total 500 / 500 Output Total 3250 / 3250 550 / 550 Balance -3250 / -3250 -50 / -50 Weight 279 kg Consult Discharge Plan - Plan Referrals: Antonella Barbosa, STAFF TRAINING AND DEVELOPMENT MANAGER [Primary Care Provider] - <Suhail Carter W - Last Filed: 05/24/18 12:36> Date of Encounter: 05/24/18 All Systems: The remainder of the systems were reviewed and are negative Physical Examination Vital Signs: Vital Signs, Last 4 Hours Temp Pulse Resp BP Pulse Ox 05/24/18 11:54 100.5 F H 98 14 101/77 96 05/24/18 11:23 17 135/74 99 Results - Laboratory Findings CBC and BMP: 05/24/18 05:54 05/24/18 05:54 ABG ABG pH 7.32 pH Units (7.32-7.45) 05/24/18 11:59 ABG pCO2 85 mmHg (35-45) H* 05/24/18 11:59 ABG pO2 123 mmHg (85-104) H 05/24/18 11:59 ABG O2 Saturation 98 % (95-98) 05/24/18 11:59 PT/INR, D-dimer PT 14.0 Seconds (9.4-12.1) H 05/23/18 21:20 D-Dimer 799 ng/mLFEU (0-500) H 05/23/18 16:24 Abnormal lab findings: Abnormal lab results MCH 26.6 pg (28.0-33.3) L 05/24/18 05:54 MCHC 29.8 g/dL (31.6-35.5) L 05/24/18 05:54 RDW 16.8 % (11.5-14.5) H 05/24/18 05:54 Nucleated RBCs/100 WBC 0.2 /100 WBC (0) H 05/23/18 02:01 PT 14.0 Seconds (9.4-12.1) H 05/23/18 21:20 D-Dimer 799 ng/mLFEU (0-500) H 05/23/18 16:24 Heparin Anti-Xa, Unfract 0.71 IU/mL (0.30-0.70) H 05/24/18 05:54 ABG pCO2 85 mmHg (35-45) H* 05/24/18 11:59 ABG pO2 123 mmHg (85-104) H 05/24/18 11:59 ABG HCO3 44 mEq/L (21-27) H 05/24/18 11:59 ABG Total CO2 46 mEq/L (20-26) H 05/24/18 11:59 ABG Base Excess 13 mEq/L (-2 to 3) H 05/24/18 11:59 Potassium 3.4 mEq/L (3.5-5.1) L 05/24/18 05:54 Chloride 96 mEq/L (98-107) L 05/24/18 05:54 Carbon Dioxide 39 mEq/L (23-29) H 05/24/18 05:54 Glucose 157 mg/dL (70-105) H 05/24/18 05:54 POC Glucose 129 mg/dL (70-99) H 05/23/18 11:09 Hemoglobin A1c 6.9 % (-5.6) H 05/23/18 02:01 AST 40 Units/L (13-39) H 05/23/18 02:01 B-Natriuretic Peptide 127 pg/mL (Less than 100) H 05/23/18 02:01 Albumin 3.4 g/dL (3.5-5.7) L 05/23/18 02:01 Globulin 4.1 g/dL (2.4-3.5) H 05/23/18 02:01 Albumin/Globulin Ratio 0.8 (1.1-2.2) L 05/23/18 02:01 TSH 9.981 mcIU/mL (0.340-5.600) H 05/23/18 02:01 Urine Color [place] (Yellow) A 05/24/18 03:30 Urine Clarity Cloudy (Clear) A 05/24/18 03:30 Urine Protein 30 mg/dL (Neg-Trace) H 05/24/18 03:30 Urine Ketones Trace mg/dL (Negative) H 05/24/18 03:30 Urine Blood Large (Negative) H 05/24/18 03:30 Urine Nitrite Positive (Negative) A 05/24/18 03:30 Urine Bilirubin Small (Negative) H 05/24/18 03:30 Ur Leukocyte Esterase Moderate (Negative) H 05/24/18 03:30 Urine Microscopic RBC 5-15 per hpf (0-3) H 05/24/18 03:30 Urine Microscopic WBC 50-100 per hpf (0-3) H 05/24/18 03:30 Urine Bacteria Many per hpf (None-Few) H 05/24/18 03:30 - Microbiology Findings Microbiology Findings: Microbiology, Last 48 Hours 05/24/18 06:45 Blood Culture - Preliminary Peripheral Venipuncture Culture is incubating and being continuously monitored for growth. Final report to follow. 05/24/18 06:40 Blood Culture - Preliminary Peripheral Venipuncture Culture is incubating and being continuously monitored for growth. Final report to follow. - Clinical Findings Intake & Output: Intake & Output 05/23/18 05/24/18 05/24/18 23:59 07:59 15:59 Intake Total 500 / 500 Output Total 3250 / 3250 550 / 550 1700 / 1700 Balance -3250 / -3250 -50 / -50 -1700 / -1700 Weight 279 kg - Attending Attestation I examined this patient and my medical decision-making was reviewed with the Resident Physician. I agree with the documented findings, disposition and treatment plan as described except to the extent set forth below. We independently had [id number] contact with the patient Patient seen and examined at bedside Labs, radiology, chart personally reviewed. 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 She presented with hypoxia and tachycardia with the worsening evidence of hypoxic hypercapnic respiratory failure last 24 hours. Clinically clinic quite stable with the adjustment of noninvasive ventilation resulting in improvement in gas exchange. She is currently in no respiratory distress. Patient presented with hypoxia and tachycardia with intermediate well score positive d-dimer unable to obtain CT angiogram because of weight constraints and of our CT scanner but has definitely had immobility over the last 1-2 weeks Overall impression is that this is chronic worsening of multiple medical problems that resulted in admission for acute on chronic respiratory failure ho wever venous thromboembolism cannot be excluded. There is no clear evidence of infectious process at this time Recs: -Continue his BiPAP for now acute the patient nothing by mouth current BiPAP set tings including IPAP EPAP ratio of 18-6 with FiO2 bleed a 50% is appropriate keep oxygen saturation around 89-92% -Recommend continuation of heparin that has been started pending STAT lower extremity venous duplex and if negative she would likely need to be transferred to another facility to confirm the absence of pulmonary embolus -Agree with restarting oral thyroxine for hypothyroidism is no evidence of myxedema but I suspect that chronic hypothyroidism is contributing to some degree to respiratory muscle weakness -Inpatient qualification for noninvasive ventilation prior to discharge -Formal outpatient polysomnogram on BiPAP -Continue IV diuretic today can likely be transitioned to oral diuretic in the next 24-48 hours goal net -1 L over the next 12-24 hours monitoring of renal function per primary medicine service Thank you for the consultation
--- NOTE | 2018-05-24 10:20 | Internal Med Progress Note ---
Hospitalist Progress Note - Encounter Date of Encounter: 05/24/18 Time of Encounter: 10:17 - Subjective Interval History: Patient was lying on bed with careful I and family like she is and depression. History of depression in the past and self weaned off. Denies suicidal or homicidal thoughts and plan. at bedside. Review the lab with raised d- dimer. Night team is started heparin drip as CT PE could not get done due to over weight. Urinalysis abnormal with nitrite positive. Urine culture report awaited. ABG worsening PCO2 Denies fever chills vomiting headache dizziness chest pain abdominal pain diarrhea. - Exam Vitals: Temp Pulse Resp BP Pulse Ox 97.6 F 92 13 135/74 97 05/24/18 07:24 05/24/18 07:24 05/24/18 07:55 05/24/18 07:55 05/24/18 07:55 Exam: General appearance: No acute distress, A&O X 3. BiPAP starting. at bedside. Morbid obese. Head exam: Atraumatic Eye exam: EOMI, PERRLA ENT exam: Moist oral mucosa Neck nontender, supple Respiratory exam: Decreased breath sounds bilaterally but no crackles wheezing Cardiovascular exam: Regular rate and rhythm, no systolic murmur Abdominal exam: Soft, nontender, nondistended, positive bowel sounds Extremities exam: No calf tenderness. Pedal edema but appear nonpitting Skin-no rash, warm, dry, intact Neurological exam: Alert, awake, oriented 3, CN II-XII intact, no focal deficits. No facial droop. Normal speech. Psych-tearful, appear depressed but no homicidal or suicidal thoughts or plan. - Assessment and Plan (1) Acute respiratory failure with hypoxia and hypercapnia Current Visit: Yes Status: Acute Assessment and Plan: On admission patient was hypoxic SPO2 82% on room air with low PaO2 on ABG. Oxygen via nasal cannula started. Repeat ABG with raised PCO2 therefore started BiPAP and consulted excelsior machine operator. Close monitoring. Raised d-dimer with possibility of PE but cannot perform CT and VQ scan due to her over weight. Empiric heparin drip and consulted excelsior machine operator. (2) Shortness of breath Current Visit: Yes Status: Acute Assessment and Plan: Multifactorial-cardiac versus pulmonary. Possible CHF exacerbation but also ra ised d-dimer and also raised PCO2 with underlying history of CHERRY. (3) CHF exacerbation Current Visit: Yes Status: Acute Assessment and Plan: Preserved EF 60%. Most likely acute diastolic heart failure. Slight raise BNP. Continue IV Lasix with a strict I&O's. Will consult cardiology if needed. Impressions: Technically sub-optimal due to body habitus. Definity echo contrast was used. LVEF 60%. Mild left ventricular diastolic dysfunction. RV size and function not well evaluated. Valves not well visualized. No significant dysfunction by Doppler. Unable to estimate RVSP due to lack of TR signal. (4) UTI (urinary tract infection) Current Visit: Yes Status: Acute Assessment and Plan: Abnormal urine analysis. Urine culture related. Continue Rocephin (5) Depression Current Visit: Yes Status: Acute Assessment and Plan: History of depression, possible bipolar. Patient self wean off the medication. At present no home medicine. A started Lexapro. No homicidal or suicidal at this time. Close monitoring and will consult inpatient psych if needed. (6) DVT prophylaxis Current Visit: Yes Status: Acute Assessment and Plan: Heparin drip (7) Hypothyroidism Current Visit: Yes Status: Acute (8) CHERRY (obstructive sleep apnea) Current Visit: Yes Status: Acute Assessment and Plan: Continue home CPAP - Time Spent with Patient Total time spent is greater than 50% in coordination of care (as documented) at patient's floor/unit and/or counseling patient: 25 - 35 minutes Internal Medicine: Result - Labs CBC & Chem 7: 05/24/18 05:54 05/24/18 05:54 Labs: Short CBC 05/23/18 05/24/18 Range/Units 21:20 05:54 WBC 9.0 9.8 (4.3-11.1) K/mcL Hgb 12.4 12.0 (11.5-15.4) g/dL Hct 42.1 40.3 (35.3-44.9) % Plt Count 201 203 (140-400) K/mcL Neutrophils # 6.3 (1.6-8.9) K/mcL BMP 05/24/18 05:54 Sodium 140 Potassium 3.4 L Chloride 96 L Carbon Dioxide 39 H BUN 10 Creatinine 0.66 Glucose 157 H Calcium 8.7 Urine 05/23/18 05/24/18 Range/Units 18:45 03:30 Urine Color Dark Yellow [place] A (Yellow) Urine Clarity Cloudy A Cloudy A (Clear) Urine pH 5.5 6.5 (5.0-8.0) pH Units Ur Specific [place] 1.024 1.019 (1.010-1.025) Urine Protein 30 H 30 H (Neg-Trace) mg/dL Urine Glucose (UA) Normal Normal (Normal) mg/dL - ABG Interpretation ABG results: ABG ABG pH 7.25 pH Units (7.32-7.45) L 05/24/18 07:56 ABG pCO2 101 mmHg (35-45) H* 05/24/18 07:56 ABG pO2 111 mmHg (85-104) H 05/24/18 07:56 ABG O2 Saturation 97 % (95-98) 05/24/18 07:56 PT/INR, D-dimer PT 14.0 Seconds (9.4-12.1) H 05/23/18 21:20 D-Dimer 799 ng/mLFEU (0-500) H 05/23/18 16:24 - Impressions Impressions Echocardiogram 05/23/18 05:59 Impressions: Technically sub-optimal due to body habitus. Definity echo contrast was used. LVEF 60%. Mild left ventricular diastolic dysfunction. RV size and function not well evaluated. Valves not well visualized. No significant dysfunction by Doppler. Unable to estimate RVSP due to lack of TR signal. Left Ventricular Wall Motion: Rest Echo Findings The mid anterior septal and mid inferior lateral moyer were not visualized. All other wall segments showed normal motion. Findings: Study Quality * Technically sub-optimal due to body habitus. ECG Findings * Normal sinus rhythm. Left Ventricle * LVEF 60%. * Mild left ventricular diastolic dysfunction. * LV wall thickness measurements not well obtained. * Definity echo contrast was used. Right Ventricle * RV size and function not well evaluated. Left Atrium * Left atrium is not well visualized. Right Atrium * Right atrium is not well visualized. Aortic Valve * No aortic regurgitation. * Aortic valve not well visualized. * No aortic stenosis. Mitral Valve * No mitral regurgitation. * Mitral valve not well visualized. * No mitral stenosis. Tricuspid Valve * Tricuspid valve not well visualized. * No tricuspid regurgitation. Pulmonic Valve * Pulmonic valve is not well visualized. * No pulmonic stenosis. * No pulmonic regurgitation. Pulmonary Artery * Pulmonary artery not well visualized. Aorta * Not well visualized. Pericardium * There is no pericardial effusion present. Interatrial Septum * Interatrial septum not well evaluated. IVC * The IVC is not well evaluated. Consult Discharge Plan - Plan Referrals: Antonella Barbosa, ERIKA [Primary Care Provider] - (4) UTI (urinary tract infection) Qualifiers: Urinary tract infection type: site unspecified Hematuria presence: without hematuria Qualified Code(s): N39.0 - Urinary tract infection, site not specified (5) Depression Qualifiers: Depression Type: unspecified Qualified Code(s): F32.9 - Major depressive disorder, single episode, unspecified (7) Hypothyroidism Qualifiers: Hypothyroidism type: unspecified Qualified Code(s): E03.9 - Hypothyroidism, unspecified
--- NOTE | 2018-05-24 10:47 | Cardiology Consult Note ---
<Karla Huertas - Last Filed: 05/24/18 11:57> Date of Encounter: 05/24/18 Time of Encounter: 09:00 Assessment and Plan (1) Acute respiratory failure with hypoxia and hypercapnia Current Visit: Yes Status: Acute Per cardiology: -PCO2 101. -Pulmonary consulted. -Management per primary service. (2) Acute diastolic (congestive) heart failure Current Visit: Yes Status: Acute Per cardiology: -Admitted with fluid retention. -BNP mildly elevated 127. -Chest x-ray with cardiomegaly and pulmonary vascular congestion. -On IV lasix. currently net negative ~5L. -Reports symptom improvement after IV lasix. -Remains volume overloaded on exam. -TTE with LVEF preserved, mild diastolic dysfunction, no visualized wall motion abnrormalities. -Strict i/os, fluid restriction, daily weights. -Continue IV diuresis until euvolemic, recommend po lasix at discharge. -CHF education reviewed with patient. -Encouraged patient to be compliant with CPAP. -Anticipate cardiology sign off once evaluated by , will arrange outpatient follow up. (3) CHERRY (obstructive sleep apnea) Current Visit: Yes Status: Chronic Per cardiology: -Known CHERRY. -Reports does not wear CPAP. -Encouraged compliance with CPAP. Discussion w patient/family: The assessment and plan as outlined above was discussed with the patient who expressed understanding and agreement. All questions were answered. Thank you for involving us in the care of your patient. Please call with any questions. Discussed and reviewed with History of Present Illness Consult date: 05/23/18 Requesting physician: Yanely Clarke Consult reason: cardiomegaly Chief complaint: fluid retention History of present illness: Ms. Looney is a 47 year old female with a relevant past medical history of CHERRY non-compliant with CPAP, hypothyroidism, anxiety, depression, obesity who presented to [facility] with complaints of fluid retention and shortness of breath. Patient states during the time of her menstrual cycle, she normally has some mild fluid retention and patient assumed that was occuring, however patient states symptoms did not improved and continued to worsen. Patient reports mobility was further limited due to edema. Patient states since IV lasix, symptoms have improved. Still on O2, not normally on at home. Past Med Surg Social Fam HX - Past Medical History Attestation: Yes The following information was validated with the patient. Source: patient, old records reviewed Medical history: other (sleep apnea) Psychiatric history: depression - Social History Smoking Status: Former smoker Smokeless Tobacco Status: No Alcohol use: none Drug use: none - Family History Mother Living Status: Still Living Hx Family Cardiac Disorders: Yes Hx Family GI Disorders: Yes Medications and Allergies Levothyroxine [Synthroid] 25 mcg PO 0630 05/23/18 [History] Trazodone HCl 150 mg PO DAILY 05/23/18 [History] Venlafaxine HCl [Venlafaxine HCl ER] 150 mg PO DAILY 05/23/18 [History] Allergy/AdvReac Type Severity Reaction Status Date / Time aspirin Allergy Difficulty Verified 05/23/18 01:09 Breathing All Systems Review: The remainder of the systems were reviewed and are negative - Cardiovascular Cardiovascular: as per HPI, dyspnea at rest, dyspnea on exertion Physical Examination Vital Signs, Last 4 Hours Temp Pulse Resp BP Pulse Ox 05/24/18 07:55 13 135/74 97 05/24/18 07:24 97.6 F 92 15 135/74 100 General: Conversant, Other (Mild conversational dyspnea noted. ) HEENT: Atraumatic, Normocephaly, Mucus Membranes Moist Neck: No JVD, Normal carotid pulses Cardiac: Reg Rate and Rhythm, Normal S1 and S2, No Murmur Lungs: Other (Lung sounds diminshed throughout. ) Neuro: Alert and responsive, No focal deficits noted Abdomen: Soft, Non-Tender Skin: No rashes noted on visualized skin Musculoskeletal: No Chest Wall Tenderness Extremities: No Clubbing, No Cyanosis, Normal Pulses, Other (Moderate lower extremity edema noted. ) Results 05/24/18 05:54 05/24/18 05:54 Lab Results Impressions Echocardiogram 05/23/18 05:59 Impressions: Technically sub-optimal due to body habitus. Definity echo contrast was used. LVEF 60%. Mild left ventricular diastolic dysfunction. RV size and function not well evaluated. Valves not well visualized. No significant dysfunction by Doppler. Unable to estimate RVSP due to lack of TR signal. Left Ventricular Wall Motion: Rest Echo Findings The mid anterior septal and mid inferior lateral moyer were not visualized. All other wall segments showed normal motion. Findings: Study Quality * Technically sub-optimal due to body habitus. ECG Findings * Normal sinus rhythm. Left Ventricle * LVEF 60%. * Mild left ventricular diastolic dysfunction. * LV wall thickness measurements not well obtained. * Definity echo contrast was used. Right Ventricle * RV size and function not well evaluated. Left Atrium * Left atrium is not well visualized. Right Atrium * Right atrium is not well visualized. Aortic Valve * No aortic regurgitation. * Aortic valve not well visualized. * No aortic stenosis. Mitral Valve * No mitral regurgitation. * Mitral valve not well visualized. * No mitral stenosis. Tricuspid Valve * Tricuspid valve not well visualized. * No tricuspid regurgitation. Pulmonic Valve * Pulmonic valve is not well visualized. * No pulmonic stenosis. * No pulmonic regurgitation. Pulmonary Artery * Pulmonary artery not well visualized. Aorta * Not well visualized. Pericardium * There is no pericardial effusion present. Interatrial Septum * Interatrial septum not well evaluated. IVC * The IVC is not well evaluated. Active Medications Acetaminophen (Tylenol) 650 mg PO Q6HR PRN PRN Reason: Mild Pain/Fever Stop: 11/22/18 05:59 Hydrocodone Bitart/Acetaminophen ([place] 5-325 Mg) 1 tab PO Q6HR PRN PRN Reason: Moderate Pain Stop: 11/22/18 05:59 Dextrose/Water (Dextrose 50% (Syg)) 25 ml IVP AD PRN PRN Reason: Hypoglycemia Stop: 11/22/18 07:44 Escitalopram Oxalate (Lexapro) 10 mg PO DAILY GIOVANI Stop: 11/23/18 10:16 Furosemide (Lasix) 40 mg IVP BIDDIURETIC GIOVANI Stop: 11/22/18 08:01 Last Admin: 05/24/18 08:48 Dose: 40 mg Glucagon (Glucagen) 1 mg IM ONCE PRN PRN Reason: Hypoglycemia Stop: 11/22/18 07:44 Glucose (Gluctose) 15 gm PO ONCE PRN PRN Reason: Hypoglycemia Stop: 11/22/18 07:44 Glucose (Gluctose) 30 gm PO ONCE PRN PRN Reason: Hypoglycemia Stop: 11/22/18 07:44 Heparin Sodium (Porcine) (Heparin) 9,000 unit IVP Q6HR PRN PRN Reason: SEE COMMENTS Stop: 11/22/18 21:12 Heparin Sodium (Porcine) (Heparin) 4,500 unit IVP Q6H PRN PRN Reason: SEE COMMENTS Stop: 11/22/18 21:12 Dextrose (Dextrose 5%) 1,000 mls @ 100 mls/hr IVC .Q10H PRN PRN Reason: HYPOGLYCEMIA Stop: 11/22/18 07:44 Heparin Sodium/Dextrose (Heparin 25,000 Unit/500 Ml D5w) 25,000 unit in 500 mls @ 69.942 mls/hr IVC .Q7H9M [facility]; Protocol Stop: 11/22/18 21:16 Last Admin: 05/24/18 08:12 Dose: 12 unit/kg/hr, 59.95 mls/hr Ceftriaxone Sodium 1,000 mg/ (Sterile Water) 10 mls @ 600 mls/hr IVP DAILY [facility] Stop: 11/23/18 09:01 Last Admin: 05/24/18 08:48 Dose: 600 mls/hr Insulin Human Lispro (Humalog) 0 units SQ TIDAC [facility]; Protocol Stop: 11/22/18 11:31 Last Admin: 05/24/18 08:39 Dose: Not Given Levothyroxine Sodium (Synthroid) 25 mcg PO 0630 [facility] Stop: 11/23/18 06:31 Last Admin: 05/24/18 08:47 Dose: 25 mcg Naloxone HCl (Narcan) 0.4 mg IVP Q2MIN PRN PRN Reason: SEE COMMENTS Stop: 11/22/18 05:59 Phenazopyridine HCl (Pyridium) 100 mg PO TID PRN PRN Reason: SEE COMMENTS Stop: 11/23/18 00:08 Last Admin: 05/24/18 00:24 Dose: 100 mg Laboratory Tests 05/23/18 05/23/18 05/24/18 02:01 02:01 05:54 Hgb 12.0 ABG pH ABG pCO2 Creatinine Troponin I < 0.03 B-Natriuretic Peptide 127 H TSH 9.981 H 05/24/18 05/24/18 05:54 07:56 Hgb ABG pH 7.25 L ABG pCO2 101 H* Creatinine 0.66 Troponin I B-Natriuretic Peptide TSH - Imaging and Cardiology Chest Xray: report reviewed Echo: report reviewed - EKG Interpretation EKG results cardiology: personally reviewed (ECG with ST, HR 102.), other (Telemetry reviewed with average HR previous 12 hours noted to be 97, SR. PVCs and PACs noted.) Consult Discharge Plan - Plan Referrals: Antonella Barbosa, TIP TESTER [Primary Care Provider] - Lee Auguste MD [Non-Partnered Physician] - <Lee Auguste - Last Filed: 05/24/18 14:23> Date of Encounter: 05/24/18 - Attending Attestation Patient was seen and evaluated independently by me. Findings, assessment and plan were discussed at length with patient, questions answered. Agree with nurse practitioner's/resident's documentation. Addition as follows, 47 yoCF ho morbid obesity CHERRY non-compliant with PAP, hypothyroidism. P/w worsening baseline LEO, Type II resp failure with acidemia. Dsypnea improved after iv lasix w/ adequate U/O. ECG mild sinus tachy, no ischemic changes. Neg trop, mild BNP elevation. TTE nl EF w/ mild diastolic dysfunction. On BiPAP, RR, CTA, B/L LE edema to lower shins. A: CHERRY/OHS, PAP non-compliance Acute on chronic respiratory failure, type II HFpEF, mild-moderate fluid overload P: lasix iv till Bun/Cr up-trending I/O/Na restriction BiPAP Lee Auguste MD, PhD Assessment and Plan Discussion w patient/family: The assessment and plan as outlined above was discussed with the patient and/or family members who expressed understanding and agreement. All questions were answered. Thank you for involving us in the care of your patient. Please call with any questions. History of Present Illness History of present illness: Ms. Looney is a 47 year old female Past Med Surg Social Fam HX - Family History Mother Living Status: Still Living Hx Family Cardiac Disorders: Yes (HTN) Hx Family GI Disorders: Yes Father Hx Family Cancer: Yes (Bladder, lung, brain) All Systems Review: The remainder of the systems were reviewed and are negative Physical Examination Vital Signs, Last 4 Hours Temp Pulse Resp BP Pulse Ox 05/24/18 11:54 100.5 F H 98 14 101/77 96 05/24/18 11:23 17 135/74 99 Results 05/24/18 05:54 05/24/18 05:54 Lab Results 05/23/18 05/23/18 05/23/18 16:24 21:20 21:20 WBC 9.0 Hgb 12.4 Hct 42.1 Plt Count 201 INR 1.2 D-Dimer 799 H Sodium Potassium Chloride Carbon Dioxide BUN Creatinine Glucose Calcium 12/28/18 12/28/18 05:54 05:54 WBC 9.8 Hgb 12.0 Hct 40.3 Plt Count 203 INR D-Dimer Sodium 140 Potassium 3.4 L Chloride 96 L Carbon Dioxide 39 H BUN 10 Creatinine 0.66 Glucose 157 H Calcium 8.7
[2018-05-24] MEDS: Ipratropium/Albuterol Neb 3 ML IH SCH ×3 (11:23→21:58)
[2018-05-24 12:03] LABS: ABG Base Excess 13 mEq/L (-2 to 3); ABG HCO3 44 mEq/L (21-27); ABG Oxygen Saturation 98 % (95-98); ABG PCO2 85 mmHg (35-45); ABG PH 7.32 pH Units (7.32-7.45); ABG PO2 123 mmHg (85-104); ABG TCO2 46 mEq/L (20-26); Blood Gas PEEP 6 cm H2O; Blood Gas Pressure Support 18 cm H2O
[2018-05-24] MEDS ORDERED: Ondansetron ODT 4 MG TAB.RAPDIS SL ONE (20:56)
[2018-05-25] MEDS: Heparin 25,000 UNIT/500 ML D5W 25,000 UNIT/500 ML BAG IVC SCH ×2 (01:43→11:06)
[2018-05-25 02:59] LABS: Basophils # 0.1 K/mcL (0.0-0.2); Basophils % 0.5 %; Eosinophils # 0.4 K/mcL (0.0-0.6); Eosinophils % 3.2 %; Hematocrit 41.9 % (35.3-44.9); Hemoglobin 12.4 g/dL (11.5-15.4); Immature Granulocytes % 0.5 % (0-4); Lymphocytes # 3.2 K/mcL (0.6-4.6); Lymphocytes % 28.5 %; Mean Corpuscular HGB Conc 29.6 g/dL (31.6-35.5); Mean Corpuscular Hemoglobin 26.8 pg (28.0-33.3); Mean Corpuscular Volume 90.7 fL (83.0-100.0); Mean Platelet Volume 10.4 fL (9.4-12.4); Monocytes # 0.6 K/mcL (0.0-1.3); Monocytes % 5.7 %; Neutrophils # 6.9 K/mcL (1.6-8.9); Platelet Count 217 K/mcL (140-400); Red Blood Count 4.62 M/mcL (3.82-4.97); Red Cell Distribution Width 16.5 % (11.5-14.5); Segmented Neutrophils % 61.6 %
[2018-05-25] MEDS: Ipratropium/Albuterol Neb 3 ML IH SCH ×2 (03:16→10:47)
[2018-05-25 03:22] LABS: BUN/Creatinine Ratio 14 (6-26); Blood Urea Nitrogen 11 mg/dL (6-20); Calcium 8.8 mg/dL (8.6-10.3); Carbon Dioxide 41 mEq/L (23-29); Chloride 91 mEq/L (98-107); Glucose 126 mg/dL (70-105); Osmolality,Calculated 285 (280-300); Potassium 3.5 mEq/L (3.5-5.1); Sodium 137 mEq/L (136-145); eGFR For Non-African Americans > 60 (> 60)
--- NOTE | 2018-05-25 06:43 | Pulmonology Progress Note ---
Date of Encounter: 05/25/18 Time of Encounter: 06:43 Objective PUL Vital signs: Last Vital Signs Temp 98.8 F 05/25/18 05:47 Pulse 110 05/25/18 05:47 Resp 14 05/25/18 05:47 BP 118/66 05/25/18 05:47 Pulse Ox 91 05/25/18 05:47 Results - Laboratory Findings CBC and BMP: 05/25/18 01:55 05/25/18 01:55 ABG ABG pH 7.32 pH Units (7.32-7.45) 05/24/18 11:59 ABG pCO2 85 mmHg (35-45) H* 05/24/18 11:59 ABG pO2 123 mmHg (85-104) H 05/24/18 11:59 ABG O2 Saturation 98 % (95-98) 05/24/18 11:59 PT/INR, D-dimer PT 14.0 Seconds (9.4-12.1) H 05/23/18 21:20 D-Dimer 799 ng/mLFEU (0-500) H 05/23/18 16:24 Abnormal lab findings: Abnormal lab results MCH 26.8 pg (28.0-33.3) L 05/25/18 01:55 MCHC 29.6 g/dL (31.6-35.5) L 05/25/18 01:55 RDW 16.5 % (11.5-14.5) H 05/25/18 01:55 Nucleated RBCs/100 WBC 0.2 /100 WBC (0) H 05/23/18 02:01 PT 14.0 Seconds (9.4-12.1) H 05/23/18 21:20 D-Dimer 799 ng/mLFEU (0-500) H 05/23/18 16:24 Heparin Anti-Xa, Unfract 0.71 IU/mL (0.30-0.70) H 05/25/18 01:55 ABG pCO2 85 mmHg (35-45) H* 05/24/18 11:59 ABG pO2 123 mmHg (85-104) H 05/24/18 11:59 ABG HCO3 44 mEq/L (21-27) H 05/24/18 11:59 ABG Total CO2 46 mEq/L (20-26) H 05/24/18 11:59 ABG Base Excess 13 mEq/L (-2 to 3) H 05/24/18 11:59 Chloride 91 mEq/L (98-107) L 05/25/18 01:55 Carbon Dioxide 41 mEq/L (23-29) H* 05/25/18 01:55 Glucose 126 mg/dL (70-105) H 05/25/18 01:55 POC Glucose 104 mg/dL (70-99) H 05/24/18 12:07 Hemoglobin A1c 6.9 % (-5.6) H 05/23/18 02:01 AST 40 Units/L (13-39) H 05/23/18 02:01 B-Natriuretic Peptide 127 pg/mL (Less than 100) H 05/23/18 02:01 Albumin 3.4 g/dL (3.5-5.7) L 05/23/18 02:01 Globulin 4.1 g/dL (2.4-3.5) H 05/23/18 02:01 Albumin/Globulin Ratio 0.8 (1.1-2.2) L 05/23/18 02:01 TSH 9.981 mcIU/mL (0.340-5.600) H 05/23/18 02:01 Urine Color [place] (Yellow) A 05/24/18 03:30 Urine Clarity Cloudy (Clear) A 05/24/18 03:30 Urine Protein 30 mg/dL (Neg-Trace) H 05/24/18 03:30 Urine Ketones Trace mg/dL (Negative) H 05/24/18 03:30 Urine Blood Large (Negative) H 05/24/18 03:30 Urine Nitrite Positive (Negative) A 05/24/18 03:30 Urine Bilirubin Small (Negative) H 05/24/18 03:30 Ur Leukocyte Esterase Moderate (Negative) H 05/24/18 03:30 Urine Microscopic RBC 5-15 per hpf (0-3) H 05/24/18 03:30 Urine Microscopic WBC 50-100 per hpf (0-3) H 05/24/18 03:30 Urine Bacteria Many per hpf (None-Few) H 05/24/18 03:30 - Microbiology Findings Microbiology Findings: Microbiology, Last 48 Hours 05/24/18 06:45 Blood Culture - Preliminary Peripheral Venipuncture Culture is incubating and being continuously monitored for growth. Final report to follow. 05/24/18 06:40 Blood Culture - Preliminary Peripheral Venipuncture Culture is incubating and being continuously monitored for growth. Final report to follow. - Clinical Findings Intake & Output: Intake & Output 05/24/18 05/24/18 05/25/18 15:59 23:59 07:59 Intake Total 842 / 842 316 / 316 Output Total 2200 / 2200 1700 / 1700 600 / 600 Balance -2200 / -2200 -858 / -858 -284 / -284 Weight 233.5 kg 234.5 kg Consult Discharge Plan - Plan Referrals: Antonella Barbosa CNP [Primary Care Provider] - Lee Auguste MD [Non-Partnered Physician] -
[2018-05-25 07:05] LABS: ABG Base Excess 13 mEq/L (-2 to 3); ABG HCO3 44 mEq/L (21-27); ABG Oxygen Saturation 89 % (95-98); ABG PCO2 85 mmHg (35-45); ABG PH 7.32 pH Units (7.32-7.45); ABG PO2 65 mmHg (85-104); ABG TCO2 47 mEq/L (20-26); Blood Gas PEEP 9 cm H2O
--- NOTE | 2018-05-25 07:26 | Event Note ---
Date of Encounter: 05/25/18 Time of Encounter: 05:34 Notified by nurse of patient being more somnolent on recent assessment. Assessed patient at bedside, difficult to arouse but once aroused was alert but drowsy. RT to bedside, stat ABG obtained appears similar to last one obtained. Patient now much more awake and alert, remains oriented, vitals stable. Nurse to notify of any new changes.
[2018-05-25] MEDS: Insulin LISPRO 300 UNITS/3 ML VIAL SQ SCH ×2 (07:58→11:22)
--- NOTE | 2018-05-25 08:42 | Pulmonology Progress Note ---
Date of Encounter: 05/25/18 Time of Encounter: 08:40 Assessment and Plan (1) Acute respiratory failure with hypoxia and hypercapnia Current Visit: Yes Status: Acute Would continue noninvasive ventilation through today with breaks for rest and liquid diet. Setttings 14/02 with Fio2 bleed to keep O2 at around 89-92% Absolutely must continue during naps and with sleep goal told the 16 hours of BiPAP support today Likely benefit from IV diuretics today with transition to by mouth tomorrow monitor urine output and daily renal function while undergoing diuresis (2) Elevated d-dimer Current Visit: Yes Status: Acute Moderate risk for pulmonary embolus with elevated d-dimer pending transfer for CT angiogram continue heparin (3) Hypothyroidism Current Visit: Yes Status: Chronic Restarted Synthroid per primary medicine service Qualifiers: Hypothyroidism type: unspecified Qualified Code(s): E03.9 - Hypothyroidism, unspecified (4) Agoraphobia Current Visit: Yes Status: Acute Consider psychiatry consultation as this appears to be impacting her quality of life and ability to get medical care (5) CHERRY (obstructive sleep apnea) Current Visit: Yes Status: Chronic She will need outpatient polysomnogram on BiPAP (6) Morbid obesity with BMI of 70 and over, adult Current Visit: Yes Status: Chronic Weight loss encouraged Subjective Principal diagnosis: Respiratory Failure Interval history: More somnolent this morning difficult to arouse repeat ABG was about the same she was noted to have some myoclonic jerking on my examination. She will she denies any complaints this morning although she is clearly sleepy but easily arousable. Lower extremity venous duplex was negative for DVT Objective PUL Vital signs: Last Vital Signs Temp 99.2 F 05/25/18 08:08 Pulse 113 05/25/18 08:08 Resp 13 05/25/18 08:08 BP 116/74 05/25/18 08:08 Pulse Ox 88 05/25/18 08:08 General appearance: no acute distress, lethargic Eyes: nonicteric Neck: supple Auscultation: bilateral: diminished breath sounds Cardiovascular: regular rate and rhythm Gastrointestinal: normoactive bowel sounds, soft, non-tender Extremities: edema (Bilateral lower extremity edema noted) Musculoskeletal: no deformities non-focal exam, pupils equal and round mood appropriate Results - Laboratory Findings CBC and BMP: 05/25/18 01:55 05/25/18 01:55 ABG ABG pH 7.32 pH Units (7.32-7.45) 05/25/18 07:02 ABG pCO2 85 mmHg (35-45) H* 05/25/18 07:02 ABG pO2 65 mmHg (85-104) L 05/25/18 07:02 ABG O2 Saturation 89 % (95-98) L 05/25/18 07:02 PT/INR, D-dimer PT 14.0 Seconds (9.4-12.1) H 05/23/18 21:20 D-Dimer 799 ng/mLFEU (0-500) H 05/23/18 16:24 Abnormal lab findings: Abnormal lab results MCH 26.8 pg (28.0-33.3) L 05/25/18 01:55 MCHC 29.6 g/dL (31.6-35.5) L 05/25/18 01:55 RDW 16.5 % (11.5-14.5) H 05/25/18 01:55 Nucleated RBCs/100 WBC 0.2 /100 WBC (0) H 05/23/18 02:01 PT 14.0 Seconds (9.4-12.1) H 05/23/18 21:20 D-Dimer 799 ng/mLFEU (0-500) H 05/23/18 16:24 Heparin Anti-Xa, Unfract 0.71 IU/mL (0.30-0.70) H 05/25/18 01:55 ABG pCO2 85 mmHg (35-45) H* 05/25/18 07:02 ABG pO2 65 mmHg (85-104) L 05/25/18 07:02 ABG HCO3 44 mEq/L (21-27) H 05/25/18 07:02 ABG Total CO2 47 mEq/L (20-26) H 05/25/18 07:02 ABG O2 Saturation 89 % (95-98) L 05/25/18 07:02 ABG Base Excess 13 mEq/L (-2 to 3) H 05/25/18 07:02 Chloride 91 mEq/L (98-107) L 05/25/18 01:55 Carbon Dioxide 41 mEq/L (23-29) H* 05/25/18 01:55 Glucose 126 mg/dL (70-105) H 05/25/18 01:55 POC Glucose 104 mg/dL (70-99) H 05/24/18 12:07 Hemoglobin A1c 6.9 % (-5.6) H 05/23/18 02:01 AST 40 Units/L (13-39) H 05/23/18 02:01 B-Natriuretic Peptide 127 pg/mL (Less than 100) H 05/23/18 02:01 Albumin 3.4 g/dL (3.5-5.7) L 05/23/18 02:01 Globulin 4.1 g/dL (2.4-3.5) H 05/23/18 02:01 Albumin/Globulin Ratio 0.8 (1.1-2.2) L 05/23/18 02:01 TSH 9.981 mcIU/mL (0.340-5.600) H 05/23/18 02:01 Urine Color [place] (Yellow) A 05/24/18 03:30 Urine Clarity Cloudy (Clear) A 05/24/18 03:30 Urine Protein 30 mg/dL (Neg-Trace) H 05/24/18 03:30 Urine Ketones Trace mg/dL (Negative) H 05/24/18 03:30 Urine Blood Large (Negative) H 05/24/18 03:30 Urine Nitrite Positive (Negative) A 05/24/18 03:30 Urine Bilirubin Small (Negative) H 05/24/18 03:30 Ur Leukocyte Esterase Moderate (Negative) H 05/24/18 03:30 Urine Microscopic RBC 5-15 per hpf (0-3) H 05/24/18 03:30 Urine Microscopic WBC 50-100 per hpf (0-3) H 05/24/18 03:30 Urine Bacteria Many per hpf (None-Few) H 05/24/18 03:30 - Microbiology Findings Microbiology Findings: Microbiology, Last 48 Hours 05/23/18 18:45 Urine Culture - Preliminary Urine,Catheterized Gram Negative Tod 05/24/18 06:45 Blood Culture - Preliminary Peripheral Venipuncture Culture is incubating and being continuously monitored for growth. Final report to follow. 05/24/18 06:40 Blood Culture - Preliminary Peripheral Venipuncture Culture is incubating and being continuously monitored for growth. Final report to follow. - Clinical Findings Intake & Output: Intake & Output 05/24/18 05/25/18 05/25/18 23:59 07:59 15:59 Intake Total 842 / 842 316 / 316 Output Total 1700 / 1700 600 / 600 200 / 200 Balance -858 / -858 -284 / -284 -200 / -200 Weight 234.5 kg Consult Discharge Plan - Plan Referrals: Antonella Barbosa, ERIKA [Primary Care Provider] - Lee Auguste MD [Non-Partnered Physician] -
[2018-05-25] MEDS: Furosemide 40 MG/4 ML VIAL IVP SCH (08:44)
[2018-05-25] MEDS: cefTRIAXone 1,000 MG in Water for inj. (sterile) 20 ML 10 ML IVP SCH (08:45)
[2018-05-25] MEDS: Levothyroxine 25 MCG TABLET PO SCH (08:45)
[2018-05-25 11:17] VITALS: BP 104/73
[2018-05-25] MEDS ORDERED: Ondansetron 4 MG/2 ML VIAL IVP PRN (11:18)
--- NOTE | 2018-05-25 11:24 | Discharge Summary ---
Orders not resulted at time of discharge: Pending orders 05/24/18 06:24 Culture,Urine [RM] Stat 05/24/18 06:45 Culture,Blood [BC] Stat 05/25/18 14:45 Heparin anti-factor XA UFH [COAG] Routine Date of Encounter: 05/25/18 Time of Encounter: 11:21 - Discharge Diagnosis (1) Acute respiratory failure with hypoxia and hypercapnia Priority: Primary Status: Acute Assessment and Plan: On admission patient was hypoxic SPO2 82% on room air with low PaO2 on ABG. Oxygen via nasal cannula started. Repeat ABG with raised PCO2 therefore started BiPAP and consulted diesel truck mechanic. At present Setttings 14/02 with Fio2 bleed to keep O2 at around 89-92%Close monitoring. Raised d-dimer with possibility of PE but cannot perform CT and VQ scan due to her over weight. Therefore discuss his pulmonologists and we decided to transfer patient to the facility where they can accommodate bariatric CT angiogram to rule out PE as patient is moderate is for pulmonary embolus with raised d-dimer. Made several calls around the hospital including [facility], [facility] [place] and [place] patient got accepted at [facility]. Talked to transfer center and on-call hospitalists Dr. yu who accepted the patient . Continue heparin drip meanwhile. (2) Shortness of breath Priority: Primary Status: Acute Assessment and Plan: Multifactorial-cardiac versus pulmonary. Possible CHF exacerbation but also raised d-dimer and also raised PCO2 with underlying history of CHERRY. As mentioned above (3) CHF exacerbation Priority: Primary Status: Acute Assessment and Plan: Preserved EF 60%. Most likely acute diastolic heart failure. Slight raise BNP. Continue IV Lasix with a strict I&O's. Lasix can be changed to oral based on the response. Impressions: Technically sub-optimal due to body habitus. Definity echo contrast was used. LVEF 60%. Mild left ventricular diastolic dysfunction. RV size and function not well evaluated. Valves not well visualized. No significant dysfunction by Doppler. Unable to estimate RVSP due to lack of TR signal. (4) UTI (urinary tract infection) Priority: Primary Status: Acute Assessment and Plan: Abnormal urine analysis. Urine culture with gram-negative gladis but final sensitivity report is still awaited. Normal white count. Continue Rocephin Qualifiers: Urinary tract infection type: site unspecified Hematuria presence: without hematuria Qualified Code(s): N39.0 - Urinary tract infection, site not specified (5) Depression Priority: Primary Status: Chronic Assessment and Plan: History of depression, possible bipolar. Patient weaned herself off the medication. At present no home medicine. started Lexapro. No homicidal or suicidal at this time. Close monitoring and will consult inpatient psych if needed. Qualifiers: Depression Type: unspecified Qualified Code(s): F32.9 - Major depressive disorder, single episode, unspecified (6) Hypothyroidism Priority: Secondary Status: Chronic Assessment and Plan: Patient is stopped taking home medicine for a few months. Therefore started 25 g levothyroxin Qualifiers: Hypothyroidism type: unspecified Qualified Code(s): E03.9 - Hypothyroidism, unspecified (7) CHERRY (obstructive sleep apnea) Priority: Secondary Status: Chronic Assessment and Plan: At present on BiPAP (8) DVT prophylaxis Priority: Secondary Status: Acute Assessment and Plan: Heparin drip Hospital course: Ms. Looney is a 47 year old female patient got admitted for acute respiratory failure with hypoxia and hypercarbia. Please see details in diagnosis section of transfer summary. At the time of transfer patient is hemodynamically stable, on BiPAP and heparin drip. Discharge discussed with: patient, family, nurse, specialty development consultant - Time Spent with Patient Total time spent providing and/or coordinating discharge services: Greater than 30 minutes - Discharge Medications Home Medications: Levothyroxine [Synthroid] 25 mcg PO 0630 05/23/18 [History] Trazodone HCl 150 mg PO DAILY 05/23/18 [History] Venlafaxine HCl [Venlafaxine HCl ER] 150 mg PO DAILY 05/23/18 [History] Allergies/Adverse Reactions: Allergy/AdvReac Type Severity Reaction Status Date / Time aspirin Allergy Difficulty Verified 05/23/18 01:09 Breathing Date of admission: 05/23/18 13:03 Primary care physician: Antonella Barbosa CNP Consults: 05/23/18 16:08 Consult to Cardiology [CONS] Routine Comment: Consulting Provider: [facility] Reason for Consult: cardiomegaly Call Completed: Yes 05/24/18 10:12 Consult to Pulmonology [CONS] Routine Consulting Provider: [facility] Reason for Consult: Severe hypoxia on presentation abnormal ABG with high CO2 and raised d-dimer Call Completed: Yes - Constitutional Vitals: Temp Pulse Resp BP Pulse Ox 98.4 F 113 14 104/73 92 05/25/18 11:11 05/25/18 11:11 05/25/18 11:11 05/25/18 11:11 05/25/18 11:11 General appearance: Present: A&O X 3, morbidly obese Exam: General appearance: No acute distress, A&O X 3. BiPAP , at bedside. Morbid obese. Head exam: Atraumatic Eye exam: EOMI, PERRLA ENT exam: Moist oral mucosa Neck nontender, supple Respiratory exam: Decreased breath sounds bilaterally but no crackles wheezing Cardiovascular exam: Regular rate and rhythm, no systolic murmur Abdominal exam: Soft, nontender, nondistended, positive bowel sounds Extremities exam: No calf tenderness. Pedal edema -better Skin-no rash, warm, dry, intact Neurological exam: Alert, awake, oriented 3, CN II-XII intact, no focal deficits. No facial droop. Normal speech. Psych-stable - Patient Status Disposition: Transfer Critical Access Hosp Condition: Fair - Discharge Instructions Follow Up With: Antonella Barbosa CNP [Primary Care Provider] - Lee Auguste MD [Non-Partnered Physician] -
== END 2018-05-25 14:22 | disposition critical access hospital (66) | DRG 291 ==
LOC: 2NENU 00:42 → EMEROOARM 00:42 → 2NENU 07:47
PROVIDERS: ADMIT Family Medicine; ATTEND Family Medicine